=== PATIENT | female | born 1995 | race Native Hawaiian/Other Pacific Islander ===

== ENCOUNTER 2020-01-17 13:34 | Emergency (ER) | payer OTHER ==
[~2020-01-17] VITALS: Ht 162.6 cm; Wt 104.3 kg
[2020-01-17 13:54] VITALS: TEMP 97.3
[2020-01-17 14:23] LABS: PLATELET COUNT 296 K/uL (152-353)
[2020-01-17 14:29] LABS: POTASSIUM 4.3 mmol/L (3.6-5.2)
[2020-01-17 15:18] VITALS: BP 122/66
== END 2020-01-17 15:18 | disposition home or self-care (01) ==
LOC: ED 13:34
PROVIDERS: Hospitalist
DX: O23.10 Infections of bladder in pregnancy, unspecified trimester (principal); R10.84 Generalized abdominal pain
CPT/HCPCS: 36415; 80053; 81000; 81025; 82150; 83690; 85027; 96360; 96375; 99284; J1885; J2405

== ENCOUNTER 2020-04-14 14:51 | Emergency (ER) | payer OTHER ==
[~2020-04-14] VITALS: Ht 162.6 cm; Wt 104.3 kg
[2020-04-14 15:21] VITALS: TEMP 98.5
[2020-04-14 15:39] LABS: PLATELET COUNT 316 K/uL (152-353)
[2020-04-14 15:51] LABS: POTASSIUM 3.8 mmol/L (3.6-5.2)
[2020-04-14 17:15] VITALS: BP 127/56
== END 2020-04-14 17:15 | disposition home or self-care (01) ==
LOC: ED 14:51
PROVIDERS: Hospitalist
DX: N30.80 Other cystitis without hematuria (principal); R19.7 Diarrhea, unspecified; R11.2 Nausea with vomiting, unspecified; A08.39 Other viral enteritis
CPT/HCPCS: 36415; 80053; 81000; 81025; 82150; 83690; 85027; 96374; 96375; 99284; J2405

== ENCOUNTER 2020-07-29 16:48 | Emergency (ER) | payer OTHER ==
[~2020-07-29] VITALS: Ht 162.6 cm; Wt 104.3 kg
[2020-07-29 17:23] LABS: PLATELET COUNT 269 K/uL (152-353)
[2020-07-29 17:38] LABS: POTASSIUM 3.5 mmol/L (3.6-5.2)
[2020-07-29 18:17] VITALS: BP 119/68; TEMP 98.9
== END 2020-07-29 18:18 | disposition home or self-care (01) ==
LOC: ED 16:48
PROVIDERS: Family Medicine
DX: J30.89 Other allergic rhinitis (principal); R11.0 Nausea
CPT/HCPCS: 36415; 80053; 81000; 81025; 85027; 99283

== ENCOUNTER 2021-10-04 11:54 | Emergency (ER) | payer OTHER ==
[~2021-10-04] VITALS: Ht 162.6 cm; Wt 113.4 kg
[2021-10-04 12:05] VITALS: TEMP 99.6
[2021-10-04 13:55] VITALS: BP 127/66
== END 2021-10-04 14:44 | disposition home or self-care (01) ==
LOC: ED 11:54
DX: J06.9 Acute upper respiratory infection, unspecified (principal); J01.80 Other acute sinusitis; U07.1 COVID-19
CPT/HCPCS: 87502; 87635; 87651; 99283; U0003